=== PATIENT | female | born 1985 | race Caucasian/White ===

== ENCOUNTER 2019-12-10 11:42 | Emergency (ER) | payer OTHER, SELFPAY ==
--- NOTE | 2019-12-10 12:01 | ED.GENADULT ---
HPI - General Adult General Chief complaint: Ear Stated complaint: left ear pain Time Seen by Provider: 12/10/19 12:18 Source: patient Mode of arrival: ambulatory Limitations: no limitations History of Present Illness HPI narrative: 34-year-old female patient presents to the [facility] with complaints of left ear pain that started this morning when she woke up. Patient states that she does have allergies and is recently been very stuffy and had allergies recently. Patient states she has been taking Benadryl here and there for her allergy symptoms but no 24-hour antihistamine. Patient denies any fevers that she is aware of. Related Data Allergies Allergy/AdvReac Type Severity Reaction Status Date / Time enoxaparin Allergy Intermediate Rash Verified 04/16/19 12:22 Review of Systems Review of Systems: Narrative: CONSTITUTIONAL: Denies fever, chills, or sweats. EYES: Denies visual changes, redness, or discharge. ENT: Positive rhinorrhea, congestion, denies sore throat, positive left otalgia. CARDIOVASCULAR: Denies chest pain, palpitations, or edema. RESPIRATORY: Denies cough or dyspnea. GASTROINTESTINAL: Denies abdominal pain, nausea, vomiting, or diarrhea. GENITOURINARY: Denies dysuria or hematuria. SKIN: Denies rash or itching. MUSCULOSKELETAL: Denies back pain, joint pain, or myalgia. NEUROLOGIC: Denies headache, numbness, or weakness. PSYCHIATRIC: Denies anxiety or depression. PMFSH Comments At the time of my signature I agree with nursing past medical history, surgical, social, and family history. There is no relevant family history pertinent to the presenting complaint. Exam Narrative: Exam Narrative: GENERAL: Well-appearing, well-nourished, and in no acute distress. HEAD: Normocephalic, atraumatic. EYES: PERRLA and EOMI. ENT: Nares clear, no rhinorrhea or epistaxis. Mucous membranes moist. Posterior pharynx no erythema, tonsillar margin, exudates or lesions present. There is erythema noted to the left TM. No foreign bodies noted to the canal. NECK: Supple. No lymphadenopathy CHEST: Clear to auscultation. No respiratory distress. HEART: Regular rate and rhythm. No murmur heard. Normal peripheral pulses. ABDOMEN: Soft, nontender, nondistended, normal active bowel sounds. EXTREMITIES: Normal range of motion. No edema. SKIN: Warm, dry, no rash. NEURO: No focal deficits. Alert and oriented x3. Course Vital Signs Vital signs: Vital Signs Temperature 36.6 C 12/10/19 12:05 Pulse Rate 99 12/10/19 12:05 Respiratory Rate 16 12/10/19 12:05 Blood Pressure 128/84 12/10/19 12:05 Pulse Oximetry 99 12/10/19 12:05 Temperature 36.6 C 12/10/19 12:05 Pulse Rate 99 12/10/19 12:05 Respiratory Rate 16 12/10/19 12:05 Blood Pressure 128/84 12/10/19 12:05 Pulse Oximetry 99 12/10/19 12:05 Vital signs reviewed. The patient has been informed that they may have pre-hypertension or Hypertension based on a BP reading in the department. I recommend that the patient call the primary care provider listed on their discharge instructions or a physician of their choice this week to arrange follow up for further evaluation of possible pre-hypertension or Hypertension Medical Decision Making Differential Diagnosis Differential Diagnosis: Differential diagnosis: Otitis media, otitis externa, perforated TM, infection of the outer ear, foreign body or cerumen impaction, ruptured TM, acute mastoiditis, ligament otitis externa, dehydration, pneumonia, sepsis, dental or intraoral infection, TMJ dysfunction Cussed with patient it does appear that she has an ear infection of the left ear. Discussed with her I will discharge her home with some antibiotics for the ear infection. Discussed with her I would also recommend that she start taking a 24-hour antihistamine this will help decrease fluid buildup in the ears and therefore decrease future ear infections. Patient verbalized understanding denies any other questions or co
[2019-12-10 12:05] VITALS: BP 128/84; PULSE 99; RESP 16; TEMP 36.6; O2SAT 99
== END 2019-12-10 12:32 | disposition home or self-care (01) ==
PROVIDERS: Emergency Provider Nurse Practitioner Family
DX: H66.92 Otitis media, unspecified, left ear (principal); R03.0 Elevated blood-pressure reading, without diagnosis of hypertension
CPT/HCPCS: 99213; G0463

== ENCOUNTER 2019-12-17 12:57 | Emergency (ER) | payer OTHER, SELFPAY ==
[2019-12-17 13:14] VITALS: BP 121/77; PULSE 83; RESP 16; TEMP 36.9; O2SAT 99
--- NOTE | 2019-12-17 13:15 | ED.GENADULT ---
HPI - General Adult General Chief complaint: Ear Stated complaint: Ear/Nose/Throat Time Seen by Provider: 12/17/19 13:16 Source: patient Mode of arrival: ambulatory Limitations: no limitations History of Present Illness HPI narrative: 34-year-old female patient presents to the [facility] with complaints of left ear pain. Patient states she was seen here recently and was diagnosed with an ear infection of the left ear was given antibiotic for amoxicillin. Patient states she started feeling better towards the end of her prescription but states that she never fully felt like it went away. Patient still states she still have a little bit of pain, fullness feeling to the left ear. Denies any fevers. Denies any coughing, chest pain, shortness of breath. Related Data Allergies Allergy/AdvReac Type Severity Reaction Status Date / Time enoxaparin Allergy Intermediate Rash Verified 04/16/19 12:22 Review of Systems Review of Systems: Narrative: CONSTITUTIONAL: Denies fever, chills, or sweats. EYES: Denies visual changes, redness, or discharge. ENT: Denies rhinorrhea, congestion, sore throat, positive left otalgia. CARDIOVASCULAR: Denies chest pain, palpitations, or edema. RESPIRATORY: Denies cough or dyspnea. GASTROINTESTINAL: Denies abdominal pain, nausea, vomiting, or diarrhea. GENITOURINARY: Denies dysuria or hematuria. SKIN: Denies rash or itching. MUSCULOSKELETAL: Denies back pain, joint pain, or myalgia. NEUROLOGIC: Denies headache, numbness, or weakness. PSYCHIATRIC: Denies anxiety or depression. PMFSH Past Medical History Medical History (Updated 12/17/19 @ 13:22 by CONTRERAS Soto) DVT (deep venous thrombosis) Factor V deficiency Surgical History Surgical History (Updated 12/17/19 @ 13:17 by CONTRERAS Soto) H/O inguinal hernia repair History of appendectomy Comments At the time of my signature I agree with nursing past medical history, surgical, social, and family history. There is no relevant family history pertinent to the presenting complaint. Exam Narrative: Exam Narrative: GENERAL: Well-appearing, well-nourished, and in no acute distress. HEAD: Normocephalic, atraumatic. EYES: PERRLA and EOMI. ENT: Nares clear, no rhinorrhea or epistaxis. Mucous membranes moist. Patient has erythema noted to the left TM on exam. Posterior pharynx with no erythema, tonsillar margin, exudates or lesions present. NECK: Supple. No lymphadenopathy CHEST: Clear to auscultation. No respiratory distress. HEART: Regular rate and rhythm. No murmur heard. Normal peripheral pulses. ABDOMEN: Soft, nontender, nondistended, normal active bowel sounds. EXTREMITIES: Normal range of motion. No edema. SKIN: Warm, dry, no rash. NEURO: No focal deficits. Alert and oriented x3. Course Vital Signs Vital signs: Vital Signs Temperature 36.9 C 12/17/19 13:14 Pulse Rate 83 12/17/19 13:14 Respiratory Rate 16 12/17/19 13:14 Blood Pressure 121/77 12/17/19 13:14 Pulse Oximetry 99 12/17/19 13:14 Temperature 36.9 C 12/17/19 13:14 Pulse Rate 83 12/17/19 13:14 Respiratory Rate 16 12/17/19 13:14 Blood Pressure 121/77 12/17/19 13:14 Pulse Oximetry 99 12/17/19 13:14 Vital signs reviewed The patient has been informed that they may have pre-hypertension or Hypertension based on a BP reading in the department. I recommend that the patient call the primary care provider listed on their discharge instructions or a physician of their choice this week to arrange follow up for further evaluation of possible pre-hypertension or Hypertension Medical Decision Making Differential Diagnosis Differential Diagnosis: Differential diagnosis: Otitis media, otitis externa, perforated TM, infection of the outer ear, foreign body or cerumen impaction, ruptured TM, acute mastoiditis, ligament otitis externa, dehydration, pneumonia, sepsis, dental or intraoral infection, TMJ dysfunction Discussed with patient that it does
== END 2019-12-17 13:25 | disposition home or self-care (01) ==
PROVIDERS: Emergency Provider Nurse Practitioner Family
DX: H66.92 Otitis media, unspecified, left ear (principal); Z86.718 Personal history of other venous thrombosis and embolism; D68.2 Hereditary deficiency of other clotting factors; R03.0 Elevated blood-pressure reading, without diagnosis of hypertension
CPT/HCPCS: 99213; G0463

== ENCOUNTER 2020-11-13 07:51 | Emergency (ER) | payer OTHER, SELFPAY ==
--- NOTE | ~2020-11-13 | US_ITS ---
EXAMINATION: US venous doppler [facility] DATE: 11/13/2020 08:41 INDICATION: Left calf pain. TECHNIQUE: Grayscale ultrasound images without and with compression and Doppler ultrasound images of the left lower extremity veins were obtained. COMPARISON: None. FINDINGS: The visualized portions of left common femoral vein, profunda (deep) femoral vein, femoral vein, popl iteal vein, peroneal veins, posterior tibial veins, and greater saphenous vein outflow are patent. IMPRESSION: 1. No deep venous thrombosis. Reviewed, dictated and finalized at location A.
[2020-11-13 07:58] VITALS: BP 133/81; PULSE 77; RESP 14; TEMP 36.2; O2SAT 100
--- NOTE | 2020-11-13 09:00 | ED.GENADULT ---
HPI - General Adult General Chief complaint: Extremity Problem,Nontraumatic Stated complaint: L leg pain, swelling hx dvts Time Seen by Provider: 11/13/20 08:08 History of Present Illness HPI narrative: Patient is a 35-year-old female who presents to the ER with left calf pain. Ongoing over the last day. Patient has history of factor V Leiden and recurrent DVT. No chest pain or shortness of breath. Reports her doctor weaned her off her anticoagulants several years ago. No recent trauma. No recent immobilization. She is not on any hormones. Related Data Allergies Allergy/AdvReac Type Severity Reaction Status Date / Time enoxaparin Allergy Intermediate Rash Verified 04/16/19 12:22 Review of Systems Review of Systems: All systems reviewed & are unremarkable except as noted in HPI and below Constitutional: Constitutional: Denies chills, Denies fever(s) and Denies weakness Cardiovascular: Cardiovascular: Denies chest pain, Denies rapid heart rate and Denies radiating jaw, neck or arm pain Respiratory: Respiratory: Denies cough and Denies dyspnea Musculoskeletal: Musculoskeletal: Reports muscle cramps Comments: Left calf pain with edema. PMFSH Past Medical History Medical History (Updated 11/13/20 @ 09:04 by Damian Garcia MD) DVT (deep venous thrombosis) Factor V deficiency Surgical History Surgical History (Updated 12/17/19 @ 13:17 by CONTRERAS Soto) H/O inguinal hernia repair History of appendectomy Exam Narrative: Exam Narrative: GENERAL: Well-appearing, well-nourished, and in no acute distress. HEAD: Normocephalic, atraumatic. CHEST: Clear to auscultation. No respiratory distress. HEART: Regular rate and rhythm. Normal peripheral pulses. ABDOMEN: Soft, nontender, nondistended EXTREMITIES: Normal range of motion. Trace edema. Mild tenderness left calf SKIN: Warm, dry, no rash. NEURO: Alert and oriented x3. Course Course Emergency Course: Patient informed of results. Discussed she should speak with her PCP about long-term anticoagulation. Vital Signs Vital signs: Vital Signs Temperature 97.2 F L 11/13/20 07:58 Pulse Rate 77 11/13/20 07:58 Respiratory Rate 14 11/13/20 07:58 Blood Pressure 133/81 11/13/20 07:58 Pulse Oximetry 100 11/13/20 07:58 Temperature 97.2 F L 11/13/20 07:58 Pulse Rate 77 11/13/20 07:58 Respiratory Rate 14 11/13/20 07:58 Blood Pressure 133/81 11/13/20 07:58 Pulse Oximetry 100 11/13/20 07:58 Medical Decision Making Vital Signs Vital Signs: Vital Signs Temperature 97.2 F L 11/13/20 07:58 Pulse Rate 77 11/13/20 07:58 Respiratory Rate 14 11/13/20 07:58 Blood Pressure 133/81 11/13/20 07:58 Pulse Oximetry 100 11/13/20 07:58 Temperature 97.2 F L 11/13/20 07:58 Pulse Rate 77 11/13/20 07:58 Respiratory Rate 14 11/13/20 07:58 Blood Pressure 133/81 11/13/20 07:58 Pulse Oximetry 100 11/13/20 07:58 Imaging Data Radiologist's impression: ITS Impressions Venous Doppler Study 11/13/20 08:46 IMPRESSION: 1. No deep venous thrombosis. Discharge Plan Discharge Clinical Impression: Calf pain Patient Disposition: Home, Self-Care Condition: Stable Instructions: Musculoskeletal Pain (ED) Additional Instructions: Return the ER if you have worsening pain or swelling, you have chest pain or shortness of breath, you cannot keep down food or water, you have additional concerns. You should speak with your primary care doctor about long-term anticoagulation given your history of blood clots and clotting disorder. Prescriptions: No Action amoxicillin-pot clavulanate [Augmentin] 875-125 mg tablet 1 tablet PO Q12H 7 Days Qty: 14 RF: 0 Follow-up/Referrals: PHYSICIAN NOT ON STAFF,NONSTAFF [Primary Care Provider] - 1 Week
== END 2020-11-13 09:15 | disposition home or self-care (01) ==
PROVIDERS: Emergency Provider Emergency Medicine
DX: M79.662 Pain in left lower leg (principal); Z86.718 Personal history of other venous thrombosis and embolism; D68.2 Hereditary deficiency of other clotting factors
CPT/HCPCS: 93971; 99284